=== PATIENT | male | born 1980 | race Caucasian/White ===

== ENCOUNTER 2022-05-05 05:52 | Day surgery (SDC) | payer BC ==
[2022-05-03 13:55] VITALS: BMI 29.3
[2022-05-05] MEDS ORDERED: Scopolamine 1.5 mg/72 hour Patch ONE (06:43)
[2022-05-05] MEDS ORDERED: EPINEPHrine 1 MG/ML AMP ONE (06:48)
[2022-05-05] MEDS ORDERED: Bupivacaine PF 0.5% 30 ML VIAL ONE (06:48)
[2022-05-05] MEDS ORDERED: SUGAMMADEX SODIUM 200 MG/2 ML VIAL ONE (07:01)
[2022-05-05] MEDS ORDERED: HYDROmorphone 0.5 MG/0.5 ML SYRINGE ONE (07:02)
[2022-05-05] MEDS ORDERED: Propofol 1,000 MG/100 ML VIAL IV ONE (07:02)
[2022-05-05] MEDS ORDERED: Rocuronium Bromide 10 MG/ML (10ML VIAL) ONE (07:03)
[2022-05-05] MEDS ORDERED: Esmolol 100 MG/10 ML VIAL ONE (07:03)
[2022-05-05] MEDS ORDERED: Ondansetron PF 4 MG/2 ML Vial ONE (07:03)
[2022-05-05] MEDS ORDERED: Lidocaine 1% PF 5 ML VIAL ONE (07:03)
[2022-05-05] MEDS ORDERED: Dexamethasone 4 mg/ml Vial ONE (07:03)
[2022-05-05] MEDS ORDERED: CEFAZOLIN 2 GM VIAL ONE (07:18)
[2022-05-05] MEDS ORDERED: Midazolam HCl 2 mg/2 ml Vial ONE (07:21)
[2022-05-05] MEDS ORDERED: Ketorolac Tromethamine 30 MG/ML VIAL ONE (08:20)
[2022-05-05] MEDS ORDERED: Meperidine HCl/PF 25 MG/ML VIAL ONE (08:43)
[2022-05-05] MEDS ORDERED: HYDROcodone/Acetaminophen 5/325 mg Tablet PO PRN (08:50)
== END 2022-05-05 11:10 | disposition home or self-care (01) ==
LOC: CSHSDC 05:52
PROVIDERS: ATTEND Surgery
PROC: 0WUF4JZ Supplement Abdominal Wall with Synthetic Substitute, Percutaneous Endoscopic Approach (ICD-10-PCS; principal; 2022-05-05)
DX: K42.0 Umbilical hernia with obstruction, without gangrene (principal); I10 Essential (primary) hypertension; K21.9 Gastro-esophageal reflux disease without esophagitis; E78.1 Pure hyperglyceridemia; E16.2 Hypoglycemia, unspecified; F41.9 Anxiety disorder, unspecified; J30.2 Other seasonal allergic rhinitis; Z87.442 Personal history of urinary calculi; Z79.899 Other long term (current) drug therapy; Z98.890 Other specified postprocedural states
CPT/HCPCS: J0171; J1100; J1170; J1885; J2175; J2250; J2405; J2704; S0020